=== PATIENT | male | born 1980 | race Caucasian/White ===

== ENCOUNTER 2019-10-09 | Emergency (ER) | payer OTHER | END 2019-10-09 02:25 | disposition left against medical advice (07) | DX: Z53.21 Procedure and treatment not carried out due to patient leaving prior to being seen by health care provider (principal) | CPT/HCPCS: 99499 ==

== ENCOUNTER 2019-11-27 07:02 | Emergency (ER) | payer OTHER, BC ==
[2019-11-27 07:15] VITALS: BP 121/65; PULSE 81; RESP 18; TEMP 97.6
--- NOTE | 2019-11-27 07:34 | ED ---
Wound/Laceration HPI - General Chief Complaint: Wound/Laceration Stated Complaint: Leg lac Time Seen by Provider: 11/27/19 07:18 Source: patient, RN notes reviewed, old records reviewed Mode of arrival: ambulatory Limitations: no limitations - History of Present Illness Initial Comments: Patient is a 39-year-old male who presents emergency department today for evaluation with chief complaint of irritation over his right posterior knee. She reports that he cut his knee on accident with a knife 3 weeks ago and reports she's been keeping this area covered. He states it is now having some irritation and itching likely where the bandage was placed. Patient states that he has no other areas of irritation or complaints. Patient denies any other sym ptoms. - Related Data Home Medications Medication Instructions Recorded Confirmed metFORMIN HCL [Glucophage] 1,000 mg PO DAILY 09/23/14 05/25/15 Lisinopril [Zestril] 5 mg PO DAILY 05/25/15 05/25/15 Previous Rx's Medication Instructions Recorded Hydrocortisone Oint 1 applic TOPICAL QID #60 gm 11/27/19 [Hydrocortisone 1% Oint] Allergies Allergy/AdvReac Type Severity Reaction Status Date / Time No Known Allergies Allergy Verified 09/23/14 13:22 Review of Systems ROS Statement: Those systems with pertinent positive or pertinent negative responses have been documented in the HPI. ROS Other: All systems not noted in ROS Statement are negative. Past Medical History Past Medical History: Diabetes Mellitus, Hypertension Additional Past Medical History / Comment(s): hypercholestremia. History of Any Multi-Drug Resistant Organisms: None Reported Additional Past Surgical History / Comment(s): cysts removal, eye surgery . Past Psychological History: No Psychological Hx Reported Smoking Status: Current every day smoker Past Alcohol Use History: Occasional Past Drug Use History: None Reported General Exam - General Exam Comments Initial Comments: 39-year-old male. Alert. No distress. Limitations: no limitations General appearance: alert, in no apparent distress Head exam: Present: atraumatic, normocephalic, normal inspection Eye exam: Present: normal appearance, PERRL, EOMI. Absent: scleral icterus, conjunctival injection, periorbital swelling ENT exam: Present: normal exam, mucous membranes moist Neck exam: Present: normal inspection. Absent: tenderness, meningismus, lymphadenopathy Respiratory exam: Present: normal lung sounds bilaterally. Absent: respiratory distress, wheezes, rales, rhonchi, stridor Cardiovascular Exam: Present: regular rate, normal rhythm, normal heart sounds. Absent: systolic murmur, diastolic murmur, rubs, gallop, clicks GI/Abdominal exam: Present: soft, normal bowel sounds. Absent: distended, tenderness, guarding, rebound, rigid Extremities exam: Present: normal inspection, full ROM, normal capillary refill. Absent: tenderness, pedal edema, joint swelling, calf tenderness Right Lower Leg exam: Present: normal inspection, full ROM, erythema (Patient has erythematous scaly lesion surrounding scar in relation to where the adhesive would be covering his from bandage from his history of a laceration 3 weeks ago. Patient has no drainage. No blistering. Full range of motion of the knee. The erythema and scaly changes measure approximately 2 cm x 3 cm.) Ankle exam: Present: normal inspection, full ROM Back exam: Present: normal inspection, full ROM Neurological exam: Present: alert, oriented X3, CN II-XII intact Psychiatric exam: Present: normal affect, normal mood Skin exam: Present: warm, dry, intact, normal color. Absent: rash Course Vital Signs 11/27/19 07:08 Temperature 97.6 F Pulse Rate 81 Respiratory 18 Rate Blood Pressure 121/65 O2 Sat by Pulse 98 Oximetry Medical Decision Making - Medical Decision Making Patient is a 39-year-old male presents branch from today when some itching over the right posterior knee. Patient likely has contact dermatitis from having a bandage over the area after sustaining a laceration. Discussed that this is a minor skin lesion, no oral systemic medications are required. Discussed at length of the steriod ointment for the next 2 weeks. Discussed using topical steroid cream. Discussed post follow-up with primary care doctor. All questions answered. Disposition Clinical Impression: Contact dermatitis Disposition: HOME SELF-CARE Condition: Good Instructions (If sedation given, give patient instructions): Contact Dermatitis (ED) Additional Instructions: Patient advised to put a thin film of the steroid cream over the area. Keep the area covered when wearing pants. Allowed to the open to air from time to time. Recommended follow-up with PCP. Prescriptions: Hydrocortisone Oint [Hydrocortisone 1% Oint] 1 applic TOPICAL QID #60 gm Is patient prescribed a controlled substance at d/c from ED?: No Referrals: Nonstaff,Physician [Primary Care Provider] - 1-2 days Time of Disposition: 07:31
== END 2019-11-27 07:37 | disposition home or self-care (01) ==
LOC: EC 07:02
DX: L25.9 Unspecified contact dermatitis, unspecified cause (principal); E11.9 Type 2 diabetes mellitus without complications; I10 Essential (primary) hypertension; F17.200 Nicotine dependence, unspecified, uncomplicated; Z79.84 Long term (current) use of oral hypoglycemic drugs; Z79.899 Other long term (current) drug therapy; Z87.828 Personal history of other (healed) physical injury and trauma
CPT/HCPCS: 99283

== ENCOUNTER 2020-01-12 04:22 | Emergency (ER) | payer OTHER, BC ==
[2020-01-12 04:32] VITALS: BP 152/86; PULSE 91; RESP 20; TEMP 97.7
[2020-01-12] MEDS ORDERED: ONDANSETRON 4 MG ODT STARTER PACK 2 TAB BTL PO STA (04:59)
--- NOTE | 2020-01-12 05:00 | ED ---
Abdominal Pain HPI - General Chief Complaint: Abdominal Pain Stated Complaint: Nausea, abd pain Time Seen by Provider: 01/12/20 04:25 Source: patient, RN notes reviewed, old records reviewed Mode of arrival: ambulatory Limitations: no limitations - History of Present Illness Initial Comments: This is a 39-year-old male presents today with upset stomach feels nauseous currently can keep anything down. Patient has going through a stress currently to changes in his job. Patient has mild nausea no absolute vomiting no chest pain. No recent travel history or sick contacts that he knows of. 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 State patient complains of stress from his travel like edema as he wants to look for another job this interview today. Patient states his stress is giving him anxiety and nausea MD Complaint: abdominal pain -: hour(s) Location: diffuse, periumbilical Radiation: epigastric, suprapubic Migration to: L flank Severity: moderate Severity scale (1-10): 4 Quality: cramping, aching Consistency: intermittent Improves With: nothing Worsens With: nothing Associated Symptoms: nausea, vomiting, diarrhea - Related Data Home Medications Medication Instructions Recorded Confirmed metFORMIN HCL [Glucophage] 1,000 mg PO DAILY 09/23/14 05/25/15 Lisinopril [Zestril] 5 mg PO DAILY 05/25/15 05/25/15 Previous Rx's Medication Instructions Recorded Hydrocortisone Oint 1 applic TOPICAL QID #60 gm 11/27/19 [Hydrocortisone 1% Oint] Allergies Allergy/AdvReac Type Severity Reaction Status Date / Time No Known Allergies Allergy Verified 01/12/20 04:32 Review of Systems ROS Statement: Those systems with pertinent positive or pertinent negative responses have been documented in the HPI. ROS Other: All systems not noted in ROS Statement are negative. Past Medical History Past Medical History: Diabetes Mellitus, Hypertension Additional Past Medical History / Comment(s): hypercholestremia. History of Any Multi-Drug Resistant Organisms: None Reported Additional Past Surgical History / Comment(s): cysts removal, eye surgery . Past Psychological History: ADD/ADHD Smoking Status: Current every day smoker Past Alcohol Use History: None Reported, Occasional Past Drug Use History: None Reported General Exam Limitations: no limitations General appearance: alert, in no apparent distress Head exam: Present: atraumatic, normocephalic, normal inspection Eye exam: Present: normal appearance, PERRL, EOMI. Absent: scleral icterus, conjunctival injection, periorbital swelling ENT exam: Present: normal exam, mucous membranes moist Neck exam: Present: normal inspection. Absent: tenderness, meningismus, lymphadenopathy Respiratory exam: Present: normal lung sounds bilaterally. Absent: respiratory distress, wheezes, rales, rhonchi, stridor Cardiovascular Exam: Present: regular rate, normal rhythm, normal heart sounds. Absent: systolic murmur, diastolic murmur, rubs, gallop, clicks GI/Abdominal exam: Present: soft, normal bowel sounds. Absent: distended, tenderness, guarding, rebound, rigid Extremities exam: Present: normal inspection, full ROM, normal capillary refill. Absent: tenderness, pedal edema, joint swelling, calf tenderness Back exam: Present: normal inspection Neurological exam: Present: alert, oriented X3, CN II-XII intact Psychiatric exam: Present: normal affect, normal mood Skin exam: Present: warm, dry, intact, normal color. Absent: rash Course Vital Signs 01/12/20 04:26 Temperature 97.7 F Pulse Rate 91 Respiratory 20 Rate Blood Pressure 152/86 O2 Sat by Pulse 98 Oximetry - Reevaluation(s) Reevaluation #1: Medical records reviewed Symptoms significantly resolved, no symptoms Patient informed of results okay for discharge Medical Decision Making - Medical Decision Making 39 male to the ER for evaluation patient presents today for evaluation of not feeling well. Patient requesting day off work distress anxiety. No significant current symptoms. Patient can be discharged home Disposition Clinical Impression: Abdominal pain, Gastroenteritis Disposition: HOME SELF-CARE Condition: Good Instructions (If sedation given, give patient instructions): Gastritis (ED), Abdominal Pain (ED) Is patient prescribed a controlled substance at d/c from ED?: No Referrals: Nonstaff,Physician [Primary Care Provider] - 1-2 days
== END 2020-01-12 05:07 | disposition home or self-care (01) ==
LOC: EC 04:22
DX: K52.9 Noninfective gastroenteritis and colitis, unspecified (principal); E11.9 Type 2 diabetes mellitus without complications; I10 Essential (primary) hypertension; F17.200 Nicotine dependence, unspecified, uncomplicated; Z79.84 Long term (current) use of oral hypoglycemic drugs; Z79.899 Other long term (current) drug therapy
CPT/HCPCS: 99283; S0119

== ENCOUNTER 2020-02-17 16:48 | Emergency (ER) | payer OTHER, BC ==
[2020-02-17 16:57] VITALS: BP 122/74; PULSE 98; RESP 16; TEMP 97.6
--- NOTE | 2020-02-17 17:43 | ED ---
Skin/Abscess/FB HPI - General Chief complaint: Skin/Abscess/Foreign Body Stated complaint: rt big toenail Time Seen by Provider: 02/17/20 17:08 Source: patient Mode of arrival: ambulatory Limitations: no limitations - History of Present Illness Initial comments: Patient is a 39-year-old male presenting to emergency Department with a chief complaint of toenail coming off. Patient states he injured his right toe approximately one week ago. Patient states that is partially coming off now and is concerned whether he should have a Lucio taken out. Patient denies any pain but states it is uncomfortable whenever he is wearing socks or shoes. Patient denies any erythema. Patient states she is a diabetic but denies any fevers, sweats or chills. Denies any erythema or discharge near the toenail. Patient states she has full sensation. States he has full range of motion in the big toe. States he does have history of fungal infections for several decades now. - Related Data Home Medications Medication Instructions Recorded Confirmed lisinopriL [Zestril] 5 mg PO DAILY 05/25/15 02/17/20 Atorvastatin Calcium [Lipitor] 40 mg PO DAILY 02/17/20 02/17/20 Dulaglutide [Trulicity] 1.5 mg SQ SA 02/17/20 02/17/20 Pioglitazone HCl 30 mg PO DAILY 02/17/20 02/17/20 metFORMIN HCL ER [Glucophage Xr] 1,000 mg PO DAILY 02/17/20 02/17/20 Allergies Allergy/AdvReac Type Severity Reaction Status Date / Time No Known Allergies Allergy Verified 02/17/20 17:22 Review of Systems ROS Statement: Those systems with pertinent positive or pertinent negative responses have been documented in the HPI. ROS Other: All systems not noted in ROS Statement are negative. Past Medical History Past Medical History: Diabetes Mellitus, Hypertension Additional Past Medical History / Comment(s): hypercholestremia. History of Any Multi-Drug Resistant Organisms: None Reported Additional Past Surgical History / Comment(s): cysts removal, eye surgery . Past Psychological History: ADD/ADHD Past Alcohol Use History: None Reported, Occasional Past Drug Use History: None Reported General Exam Limitations: no limitations General appearance: alert, in no apparent distress, obese Head exam: Present: atraumatic, normocephalic, normal inspection Eye exam: Present: normal appearance, PERRL, EOMI Pupils: Present: normal accommodation ENT exam: Present: normal exam, normal oropharynx, mucous membranes moist, TM's normal bilaterally, normal external ear exam Neck exam: Present: normal inspection, full ROM. Absent: tenderness Respiratory exam: Present: normal lung sounds bilaterally. Absent: respiratory distress, wheezes Cardiovascular Exam: Present: regular rate, normal rhythm, normal heart sounds Extremities exam: Present: full ROM, normal capillary refill, other (+2 dorsalis pedis and posterior tibials bilaterally.). Absent: normal inspection (Partial nail avulsion of the right big toe.), tenderness Back exam: Present: normal inspection, full ROM. Absent: tenderness Neurological exam: Present: alert, oriented X3 Psychiatric exam: Present: normal affect, normal mood Skin exam: Present: warm, dry, intact, normal color Course Vital Signs 02/17/20 16:55 Temperature 97.6 F Pulse Rate 98 Respiratory 16 Rate Blood Pressure 122/74 O2 Sat by Pulse 96 Oximetry Medical Decision Making - Medical Decision Making This is a 39-year-old male presenting to the emergency department with a chief complaint of toenail coming up. On exam patient has a partial toenail avulsion which has been ongoing for the past 7 days when he injured it. States he has full range of motion in the right hallux. denies any pain , erythema or discharge. His biggest concern was the discomfort with wearing socks and shoes. The toenail appears to partially off the nailbed but I will not remove it at this time. Dressing was applied to keep the toenail take to the nailbed. No signs of infection at this time. This does not appear to be an ingrown nail. Patient advised to follow with the primary care. Return prescribed with thoroughly discussed with patient was a agreeable. Advised to follow-up with podiatry. Case discussed with physician. Disposition Clinical Impression: Toenail deformity Disposition: HOME SELF-CARE Condition: Stable Instructions (If sedation given, give patient instructions): Nail Removal (ED) Additional Instructions: Follow-up with a technical artist. Return to emergency department if symptoms worsen. Is patient prescribed a controlled substance at d/c from ED?: No Referrals: Nonstaff,Physician [Primary Care Provider] - 1-2 days Mathieu Mixon DPM [STAFF PHYSICIAN] - 1-2 days Time of Disposition: 17:42
== END 2020-02-17 18:02 | disposition home or self-care (01) ==
LOC: EC 16:48
DX: L60.8 Other nail disorders (principal); S91.201A Unspecified open wound of right great toe with damage to nail, initial encounter; E11.9 Type 2 diabetes mellitus without complications; I10 Essential (primary) hypertension; E78.00 Pure hypercholesterolemia, unspecified; Z79.84 Long term (current) use of oral hypoglycemic drugs; Z79.899 Other long term (current) drug therapy; X58.XXXA Exposure to other specified factors, initial encounter
CPT/HCPCS: 99283

== ENCOUNTER 2021-08-09 05:34 | Emergency (ER) | payer BC, OTHER ==
[2021-08-09 05:44] VITALS: TEMP 97.7
[2021-08-09] MEDS ORDERED: SODIUM CHLORIDE 0.9% 1,000 ML IV STA (05:52)
[2021-08-09] MEDS ORDERED: ONDANSETRON 4 MG/2 ML VIAL IVP STA (05:52)
[2021-08-09] MEDS ORDERED: KETOROLAC 15 MG/ML 1 ML VIAL IVP STA (05:52)
[2021-08-09] MEDS ORDERED: ONDANSETRON ODT 4 MG TAB PO STA (06:06)
[2021-08-09 06:27] LABS: Basophils % (A) 0 %; Eosinophils # (A) 0.2 k/uL (0-0.7); Eosinophils % (A) 3 %; HCT 45.1 % (39.0-53.0); HGB 14.5 gm/dL (13.0-17.5); Lymphocytes # (A) 1.7 k/uL (1.0-4.8); Lymphocytes % (A) 29 %; MCH 28.2 pg (25.0-35.0); MCHC 32.2 g/dL (31.0-37.0); MCV 87.5 fL (80.0-100.0); Monocytes # (A) 0.3 k/uL (0-1.0); Monocytes % (A) 5 %; Neutrophils # (A) 3.5 k/uL (1.3-7.7); Neutrophils % (A) 61 %; Platelet Count 219 k/uL (150-450); RBC 5.16 m/uL (4.30-5.90); RDW 13.7 % (11.5-15.5); WBC 5.7 k/uL (3.8-10.6)
[2021-08-09 06:29] LABS: Appearance,Urine Clear (Clear); Bilirubin,Urine Negative (Negative); Blood,Urine Negative (Negative); Color,Urine Yellow; Glucose,Urine (UA) Trace (Negative); Ketones,Urine Negative (Negative); Leukocyte Esterase,Urine Negative (Negative); Nitrite,Urine Negative (Negative); PH, Urine 5.5 (5.0-8.0); Protein,Urine Trace (Negative); Specific Gravity,Urine 1.031 (1.001-1.035)
[2021-08-09 06:41] LABS: ALT 26 U/L (4-49); AST 19 U/L (17-59); African American GFR (CKD) >90 (>60 ml/min/1.73 sqM); Albumin 3.9 g/dL (3.5-5.0); Alkaline Phosphatase 123 U/L (38-126); Amylase 58 U/L (30-110); Anion Gap 5 mmol/L; Blood Urea Nitrogen 14 mg/dL (9-20); Calcium 9.6 mg/dL (8.4-10.2); Carbon Dioxide 26 mmol/L (22-30); Chloride 107 mmol/L (98-107); Glucose 166 mg/dL (74-99); Lipase 71 U/L (23-300); Non-African American GFR(CKD) >90 (>60 ml/min/1.73 sqM); Potassium 4.4 mmol/L (3.5-5.1); Sodium 138 mmol/L (137-145); Total Bilirubin 0.4 mg/dL (0.2-1.3); Total Protein 6.2 g/dL (6.3-8.2)
--- NOTE | 2021-08-09 06:45 | ED ---
Abdominal Pain HPI - General Chief Complaint: Abdominal Pain Stated Complaint: abd pain Time Seen by Provider: 08/09/21 05:52 Source: patient, RN notes reviewed Mode of arrival: ambulatory Limitations: no limitations - History of Present Illness Initial Comments: A she is a 41-year-old male that presents to the emergency department complaining of left-sided abdominal pain with one episode of vomiting earlier this morning. Patient notes that he will leave AMA if he needs to be admitted. He also confessed that he really just wants a work note due to increased stress and father being injured. Patient repeatedly and profuse he stated he would just like a work note. He was otherwise well-appearing in no apparent distress. He denied any chest pain shortness of breath headache diarrhea constipation fever fatigue chills. - Related Data Home Medications Medication Instructions Recorded Confirmed lisinopriL [Zestril] 5 mg PO DAILY 05/25/15 02/17/20 Atorvastatin Calcium [Lipitor] 40 mg PO DAILY 02/17/20 02/17/20 Dulaglutide [Trulicity] 1.5 mg SQ SA 02/17/20 02/17/20 Pioglitazone HCl 30 mg PO DAILY 02/17/20 02/17/20 metFORMIN HCL ER [Glucophage Xr] 1,000 mg PO DAILY 02/17/20 02/17/20 Allergies Allergy/AdvReac Type Severity Reaction Status Date / Time Penicillins AdvReac Nausea & Verified 08/09/21 05:44 Vomiting & Diarrhea Review of Systems ROS Statement: Those systems with pertinent positive or pertinent negative responses have been documented in the HPI. ROS Other: All systems not noted in ROS Statement are negative. Past Medical History Past Medical History: Diabetes Mellitus, Hypertension Additional Past Medical History / Comment(s): hypercholestremia. History of Any Multi-Drug Resistant Organisms: None Reported Additional Past Surgical History / Comment(s): cysts removal, eye surgery . Past Psychological History: ADD/ADHD Smoking Status: Current every day smoker Past Alcohol Use History: None Reported Past Drug Use History: None Reported General Exam Limitations: no limitations General appearance: alert, in no apparent distress, obese Head exam: Present: atraumatic, normocephalic, normal inspection Eye exam: Present: normal appearance, PERRL, EOMI. Absent: scleral icterus, conjunctival injection, periorbital swelling ENT exam: Present: normal exam, mucous membranes moist Neck exam: Present: normal inspection. Absent: tenderness, meningismus, lymphadenopathy Respiratory exam: Present: normal lung sounds bilaterally. Absent: respiratory distress, wheezes, rales, rhonchi, stridor Cardiovascular Exam: Present: regular rate, normal rhythm, normal heart sounds. Absent: systolic murmur, diastolic murmur, rubs, gallop, clicks GI/Abdominal exam: Present: soft, normal bowel sounds. Absent: distended, tenderness, guarding, rebound, rigid Extremities exam: Present: normal inspection, full ROM, normal capillary refill. Absent: tenderness, pedal edema, joint swelling, calf tenderness Neurological exam: Present: alert, oriented X3 Psychiatric exam: Present: normal affect, normal mood Skin exam: Present: warm, dry, intact, normal color. Absent: rash Course Vital Signs 08/09/21 05:40 Temperature 97.7 F Pulse Rate 72 Respiratory 22 Rate Blood Pressure 117/65 O2 Sat by Pulse 97 Oximetry Medical Decision Making - Medical Decision Making 41-year-old male complaining of abdominal pain with vomiting times one this morning. Labs, milligrams of Zofran ordered. Patient declined any IV fluids pain medication or scanning/imaging. Labs are unremarkable and within normal limits. Patient was informed resulted in his real discharge home. Work note for today given. Case discussed with Dr. Dupree. - Lab Data Result diagrams: 08/09/21 05:56 08/09/21 05:56 Lab Results 08/09/21 08/09/21 08/09/21 Range/Units 05:56 05:56 05:56 WBC 5.7 (3.8-10.6) k/uL RBC 5.16 (4.30-5.90) m/uL Hgb 14.5 (13.0-17.5) gm/dL Hct 45.1 (39.0-53.0) % MCV 87.5 (80.0-100.0) fL MCH 28.2 (25.0-35.0) pg MCHC 32.2 (31.0-37.0) g/dL RDW 13.7 (11.5-15.5) % Plt Count 219 (150-450) k/uL MPV 8.0 Neutrophils % 61 % Lymphocytes % 29 % Monocytes % 5 % Eosinophils % 3 % Basophils % 0 % Neutrophils # 3.5 (1.3-7.7) k/uL Lymphocytes # 1.7 (1.0-4.8) k/uL Monocytes # 0.3 (0-1.0) k/uL Eosinophils # 0.2 (0-0.7) k/uL Basophils # 0.0 (0-0.2) k/uL Sodium 138 (137-145) mmol/L Potassium 4.4 (3.5-5.1) mmol/L Chloride 107 (98-107) mmol/L Carbon Dioxide 26 (22-30) mmol/L Anion Gap 5 mmol/L BUN 14 (9-20) mg/dL Creatinine 0.69 (0.66-1.25) mg/dL Est GFR (CKD-EPI)AfAm >90 (>60 ml/min/1.73 sqM) Est GFR (CKD-EPI)NonAf >90 (>60 ml/min/1.73 sqM) Glucose 166 H (74-99) mg/dL Calcium 9.6 (8.4-10.2) mg/dL Total Bilirubin 0.4 (0.2-1.3) mg/dL AST 19 (17-59) U/L ALT 26 (4-49) U/L Alkaline Phosphatase 123 (38-126) U/L Total Protein 6.2 L (6.3-8.2) g/dL Albumin 3.9 (3.5-5.0) g/dL Amylase 58 (30-110) U/L Lipase 71 (23-300) U/L Urine Color Yellow Urine Appearance Clear (Clear) Urine pH 5.5 (5.0-8.0) Ur Specific [place] 1.031 (1.001-1.035) Urine Protein Trace H (Negative) Urine Glucose (UA) Trace H (Negative) Urine Ketones Negative (Negative) Urine Blood Negative (Negative) Urine Nitrite Negative (Negative) Urine Bilirubin Negative (Negative) Urine Urobilinogen 2.0 (<2.0) mg/dL Ur Leukocyte Esterase Negative (Negative) Disposition Clinical Impression: Abdominal pain Disposition: HOME SELF-CARE Condition: Stable Instructions (If sedation given, give patient instructions): Abdominal Pain (ED) Additional Instructions: Please return to the Emergency Department if symptoms worsen or any other concerns. Is patient prescribed a controlled substance at d/c from ED?: No Referrals: Boris Lopez DO [Primary Care Provider] - 1-2 days Time of Disposition: 06:45
[2021-08-09 06:58] VITALS: BP 159/72; PULSE 77; RESP 18
== END 2021-08-09 07:11 | disposition home or self-care (01) ==
LOC: EC 05:34
DX: R10.9 Unspecified abdominal pain (principal); R11.10 Vomiting, unspecified; F17.200 Nicotine dependence, unspecified, uncomplicated; E11.9 Type 2 diabetes mellitus without complications; I10 Essential (primary) hypertension; Z88.0 Allergy status to penicillin; Z79.899 Other long term (current) drug therapy; Z79.84 Long term (current) use of oral hypoglycemic drugs; Z20.822 Contact with and (suspected) exposure to COVID-19
CPT/HCPCS: 36415; 80053; 81003; 82150; 83605; 83690; 85025; 87635; 99284

== ENCOUNTER 2022-08-11 18:48 | Emergency (ER) | payer BC ==
--- NOTE | 2022-08-11 20:33 | ED ---
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 He states he also had a cough which has resolved now. Patient states that he never had that happen before. He is concerned for pneumonia. Denies any fevers, no nausea vomiting diarrhea, no abdominal pain, no chest pain or shortness of breath. Patient is a pack-a-day smoker. History of diabetes, hypertension and high cholesterol. MD Complaint: cough, rhinorrhea, other (sneezing) -: days(s) (1) Severity scale (1-10): 0 Consistency: now resolved Improves With: nothing Associated Symptoms: denies other symptoms Treatments Prior to Arrival: none - Related Data Home Medications Medication Instructions Recorded Confirmed lisinopriL [Zestril] 5 mg PO DAILY 05/25/15 02/17/20 Atorvastatin Calcium [Lipitor] 40 mg PO DAILY 02/17/20 02/17/20 Dulaglutide [Trulicity] 1.5 mg SQ SA 02/17/20 02/17/20 Pioglitazone HCl 30 mg PO DAILY 02/17/20 02/17/20 metFORMIN HCL ER [Glucophage Xr] 1,000 mg PO DAILY 02/17/20 02/17/20 Allergies Allergy/AdvReac Type Severity Reaction Status Date / Time Penicillins AdvReac Nausea & Verified 12/31/21 00:28 Vomiting & Diarrhea Review of Systems ROS Statement: Those systems with pertinent positive or pertinent negative responses have been documented in the HPI. ROS Other: All systems not noted in ROS Statement are negative. Past Medical History Past Medical History: Diabetes Mellitus, Hypertension Additional Past Medical History / Comment(s): hypercholestremia. History of Any Multi-Drug Resistant Organisms: None Reported Additional Past Surgical History / Comment(s): cysts removal, eye surgery . Past Psychological History: ADD/ADHD Smoking Status: Current every day smoker Past Alcohol Use History: None Reported Past Drug Use History: None Reported General Exam Limitations: no limitations General appearance: alert, in no apparent distress Head exam: Present: atraumatic Eye exam: Absent: scleral icterus, conjunctival injection, periorbital swelling ENT exam: Present: mucous membranes moist Neck exam: Absent: meningismus Respiratory exam: Present: normal lung sounds bilaterally. Absent: respiratory distress, wheezes, rales, rhonchi, stridor, chest wall tenderness, accessory muscle use Cardiovascular Exam: Present: regular rate GI/Abdominal exam: Present: soft. Absent: tenderness Extremities exam: Present: normal capillary refill. Absent: tenderness, pedal edema Back exam: Absent: tenderness, rash noted Neurological exam: Present: alert, oriented X3, normal gait Psychiatric exam: Present: normal affect, normal mood Skin exam: Present: warm, dry, normal color. Absent: cyanosis, diaphoretic, petechiae, pallor Course Vital Signs 08/11/22 08/11/22 08/11/22 19:53 20:04 21:46 Temperature 98.3 F 98.0 F Pulse Rate 64 82 Respiratory 14 20 17 Rate Blood Pressure 130/75 142/80 O2 Sat by Pulse 98 98 Oximetry Medical Decision Making - Medical Decision Making Oxygen saturation is 98% on room air. No evidence of tachycardia. No fever. He was offered influenza and coronavirus testing and declined. He denies any chest pain or difficulty in breathing. No sore throat. Chest x-ray interpreted by me shows no evidence of consolidation. Radiologist interpretation normal chest. This may be an ALLERGIC response to an irritant as his symptoms have resolved. I encouraged him to stop smoking. Explained that chronic obstructive pulmonary disease is a common complication for those that smoke. Directed to follow up with his primary care doctor as needed. Case discussed with Dr. Frazier Was pt. sent in by a medical professional or institution? @ -no Did you speak to anyone other than the patient for history? @ -no Did you review nursing and triage notes? @ -yes i agree Were old charts reviewed? @ -no Differential Diagnosis? @ -allergic response, viral illness, pneumonia EKG interpreted by me (3pts min.)? @ -[none] X-rays interpreted by me (1pt min.)? @ -Yes as above CT interpreted by me (1pt min.)? @ -[none] U/S interpreted by me (1pt. min.)? @ -[none] What testing was considered but not performed? (CT, X-rays, U/S, labs)? Why? @Viral testing however patient declined What meds were considered but not given? Why? @ -no Did you discuss the management of the patient with other professionals? @ -no Did you reconcile home meds? @ -no Was smoking cessation discussed for >3mins.? @ -yes Was critical care preformed (if so, how long)? @ -no Were there social determinants of health that impacted care today? How? (Homelessness, low income, unemployed, alcoholism, drug addiction, transportation, low edu. Level, literacy, decrease access to med. care, snf, rehab)? @ -no Was there de-escalation of care discussed even if they declined? (Discuss DNR or withdrawal of care, Hospice)? @ -no What co-morbidities impacted this encounter? (DM, HTN, Smoking, COPD, CAD, Cancer, CVA, Hep., AIDS, mental health diagnosis, sleep apnea, morbid obesity)? @ -smoking, DM, HTN, high cholesterol, obesity Was patient admitted / discharged? @ -discharged Undiagnosed new problem with uncertain prognosis? @ -[none] Drug Therapy requiring intensive monitoring for toxicity (Heparin, Nitro, Insulin, Cardizem)? @ -no Were any procedures done? @ -no Diagnosis/symptom? @ -Upper respiratory illness Acute, or Chronic, or Acute on Chronic? @ -Acute Uncomplicated (without systemic symptoms) or Complicated (systemic symptoms)? @ -Uncomplicated Side effects of treatment? @ -[none] Exacerbation, Progression, or Severe Exacerbation] @ -[no] Poses a threat to life or bodily function? @ -[no] Disposition Clinical Impression: Acute upper respiratory infection Disposition: HOME SELF-CARE Condition: Good Instructions (If sedation given, give patient instructions): Upper Respiratory Infection (ED) Additional Instructions: Increase your fluid intake. Follow-up with primary care doctor next week. Take vitamin C vitamin D and zinc. Please stop smoking as it will worsen and lengthen the duration of any illness that you have. Is patient prescribed a controlled substance at d/c from ED?: No Referrals: Boris Lopez DO [Primary Care Provider] - 1-2 days Time of Disposition: 21:21
--- NOTE | 2022-08-11 21:00 | XR ---
EXAMINATION TYPE: XR chest 2V DATE OF EXAM: 08/11/2022 COMPARISON: NONE HISTORY: Cough TECHNIQUE: 2 views FINDINGS: Heart is normal. Lungs are clear of consolidation. There are no hilar masses. Bony thorax i s intact. IMPRESSION: Normal chest.
[2022-08-11 21:48] VITALS: BP 142/80; PULSE 82; RESP 17; TEMP 98
== END 2022-08-11 21:47 | disposition home or self-care (01) ==
LOC: EC 18:48
DX: J06.9 Acute upper respiratory infection, unspecified (principal); E11.9 Type 2 diabetes mellitus without complications; I10 Essential (primary) hypertension; F17.200 Nicotine dependence, unspecified, uncomplicated; Z88.0 Allergy status to penicillin; Z79.899 Other long term (current) drug therapy; Z79.84 Long term (current) use of oral hypoglycemic drugs
CPT/HCPCS: 71046; 99283

== ENCOUNTER 2022-10-11 08:41 | Emergency (ER) | payer BC ==
[2022-10-11 08:47] VITALS: BP 123/78; PULSE 90; RESP 20; TEMP 98.2
--- NOTE | 2022-10-11 09:20 | ED ---
General Adult HPI - General Chief complaint: Skin/Abscess/Foreign Body Stated complaint: rash Time Seen by Provider: 10/11/22 08:52 Source: patient, RN notes reviewed, old records reviewed Mode of arrival: ambulatory Limitations: no limitations - History of Present Illness Initial comments: This is a 42-year-old male who presents emergency Department complaining of a rash on both hands. Patient thinks it's scabies. Patient states she's had no exposure to scabies that he knows of. Patient states the rash is itchy but not that bad. Patient denies any other complaints. Patient denies any chemical exposure. Patient states his been ongoing for about a month. - Related Data Home Medications Medication Instructions Recorded Confirmed lisinopriL [Zestril] 5 mg PO DAILY 05/25/15 02/17/20 Atorvastatin Calcium [Lipitor] 40 mg PO DAILY 02/17/20 02/17/20 Dulaglutide [Trulicity] 1.5 mg SQ SA 02/17/20 02/17/20 Pioglitazone HCl 30 mg PO DAILY 02/17/20 02/17/20 metFORMIN HCL ER [Glucophage Xr] 1,000 mg PO DAILY 02/17/20 02/17/20 Previous Rx's Medication Instructions Recorded Permethrin 5% Cream [Elimite] 1 gm TOPICAL ONCE 1 Days #30 each 10/11/22 Allergies Allergy/AdvReac Type Severity Reaction Status Date / Time Penicillins AdvReac Nausea & Verified 10/11/22 08:47 Vomiting & Diarrhea Review of Systems ROS Statement: Those systems with pertinent positive or pertinent negative responses have been documented in the HPI. ROS Other: All systems not noted in ROS Statement are negative. Past Medical History Past Medical History: Diabetes Mellitus, Hypertension Additional Past Medical History / Comment(s): hypercholestremia. History of Any Multi-Drug Resistant Organisms: None Reported Additional Past Surgical History / Comment(s): cysts removal, eye surgery . Past Psychological History: ADD/ADHD Smoking Status: Current every day smoker Past Alcohol Use History: None Reported Past Drug Use History: None Reported General Exam - General Exam Comments Initial Comments: GENERAL Patient is well-developed and well-nourished. Patient is in mild distress. EYES Patient's pupils are equal and round. Extraocular motion is intact SKIN Patient has some excoriated areas on the dorsal aspect of both hands and both wrists. Patient looks like he's been itching the area because all areas are excoriated. NEURO The patient is alert and oriented 3 PYSCH Patient has normal interpersonal interactions. MUSCULOSKELETAL All 4 extremities and full range of motion Limitations: no limitations Course Vital Signs 10/11/22 08:44 Temperature 98.2 F Pulse Rate 90 Respiratory 20 Rate Blood Pressure 123/78 O2 Sat by Pulse 96 Oximetry Medical Decision Making - Medical Decision Making Was pt. sent in by a medical professional or institution (, ALEXANDRU, INJECTION MOLDING PROCESS TECHNICIAN, urgent care, hospital, or long term...) When possible be specific @ -No Did you speak to anyone other than the patient for history (EMS, parent, family, police, friend...)? What history was obtained from this source @ -No Did you review nursing and triage notes (agree or disagree)? Why? @ -I reviewed and agree with nursing and triage notes Were old charts reviewed (outside hosp., previous admission, EMS record, old EK G, old radiological studies, urgent care reports/EKG's, long term records)? Report findings @ -No old charts were reviewed Differential Diagnosis (chest pain, altered mental status, abdominal pain women, abdominal pain men, vaginal bleeding, weakness, fever, dyspnea, syncope, headache, dizziness, GI bleed, back pain, seizure, CVA, palpatations, mental health, musculoskeletal)? @ -Folliculitis, scabies, viral exanthem, herpes, this is not all inclusive list EKG interpreted by me (3pts min.). @ -As above X-rays interpreted by me (1pt min.). @ -None done CT interpreted by me (1pt min.). @ -None done U/S interpreted by me (1pt. min.). @ -None done What testing was considered but not performed or refused? (CT, X-rays, U/S, labs)? Why? @ -None What meds were considered but not given or refused? Why? @ -None Did you discuss the management of the patient with other professionals (liberty roberson i.e. ALEXANDRU Fuller, INJECTION MOLDING PROCESS TECHNICIAN, lab, RT, psych nurse, social work program coordinator, dehorner, teacher, assistant chief nursing officer, rn case management)? Give summary @ -No Was smoking cessation discussed for >3mins.? @ -No Was critical care preformed (if so, how long)? @ -No Were there social determinants of health that impacted care today? How? (Homelessness, low income, unemployed, alcoholism, drug addiction, transportation, low edu. Level, literacy, decrease access to med. care, [facility], rehab)? @ -No Was there de-escalation of care discussed even if they declined (Discuss DNR or withdrawal of care, Hospice)? DNR status @ -No What co-morbidities impacted this encounter? (DM, HTN, Smoking, COPD, CAD, Cancer, CVA, ARF, Chemo, Hep., AIDS, mental health diagnosis, sleep apnea, morbid obesity)? @ -None Was patient admitted / discharged? Hospital course, mention meds given and route, prescriptions, significant lab abnormalities, going to OR and other pertinent info. @ -Patient's rash is very minor Anusol excoriated is difficult to say what the initial rash look like. Patient was insistent he thought it was scabies and wanted treatment for that. Undiagnosed new problem with uncertain prognosis? @ -No Drug Therapy requiring intensive monitoring for toxicity (Heparin, Nitro, Insulin, Cardizem)? @ -No Were any procedures done? @ -No Diagnosis/symptom? @ -Scabies Acute, or Chronic, or Acute on Chronic? @ -Acute Uncomplicated (without systemic symptoms) or Complicated (systemic symptoms)? @ -Uncomplicated Side effects of treatment? @ -No Exacerbation, Progression, or Severe Exacerbation? @ -No Poses a threat to life or bodily function? How? (Chest pain, [place], [place], pneumonia, PE, COPD, DKA, ARF, appy, cholecystitis, CVA, Diverticulitis, Homicidal, Suicidal, threat to staff... and all critical care pts) @ -No Disposition Clinical Impression: Scabies Disposition: HOME SELF-CARE Condition: Good Instructions (If sedation given, give patient instructions): Scabies (ED) Prescriptions: Permethrin 5% Cream [Elimite] 1 gm TOPICAL ONCE 1 Days #30 each Is patient prescribed a controlled substance at d/c from ED?: No Referrals: Boris Lopez DO [Primary Care Provider] - 1-2 days Time of Disposition: 09:20
== END 2022-10-11 09:38 | disposition home or self-care (01) ==
LOC: EC 08:41
DX: B86 Scabies (principal); I10 Essential (primary) hypertension; E11.9 Type 2 diabetes mellitus without complications; F17.200 Nicotine dependence, unspecified, uncomplicated; Z79.84 Long term (current) use of oral hypoglycemic drugs; Z79.899 Other long term (current) drug therapy; Z88.0 Allergy status to penicillin
CPT/HCPCS: 99282

== ENCOUNTER 2023-02-08 01:12 | Emergency (ER) | payer BC ==
[2023-02-08 01:27] VITALS: BP 127/77; PULSE 89; RESP 18; TEMP 98.7
--- NOTE | 2023-02-08 01:42 | ED ---
Skin/Abscess/FB HPI - General Chief complaint: Skin/Abscess/Foreign Body Stated complaint: Finger pain Time Seen by Provider: 02/08/23 01:20 Source: patient Mode of arrival: ambulatory Limitations: no limitations - History of Present Illness Initial comments: 42-year-old male presenting with chief complaint of pain to the right ring finger. States that he frequently bites his nails and the finger has been painful and swollen for a few days. He is also concerned for a small pustule on the left elbow. No fevers or chills. No nausea or vomiting. No joint swelling or erythema. - Related Data Home Medications Medication Instructions Recorded Confirmed lisinopriL [Zestril] 5 mg PO DAILY 05/25/15 02/17/20 Atorvastatin Calcium [Lipitor] 40 mg PO DAILY 02/17/20 02/17/20 Dulaglutide [Trulicity] 1.5 mg SQ SA 02/17/20 02/17/20 Pioglitazone HCl 30 mg PO DAILY 02/17/20 02/17/20 metFORMIN HCL ER [Glucophage Xr] 1,000 mg PO DAILY 02/17/20 02/17/20 Previous Rx's Medication Instructions Recorded Permethrin 5% Cream [Elimite] 1 gm TOPICAL ONCE 1 Days #30 each 10/11/22 Sulfamethox-Tmp 800-160Mg [Bactrim 1 tab PO Q12HR 7 Days #14 tab 02/08/23 DS 800-160 mg] Allergies Allergy/AdvReac Type Severity Reaction Status Date / Time Penicillins AdvReac Nausea & Verified 02/08/23 01:27 Vomiting & Diarrhea Review of Systems ROS Statement: Those systems with pertinent positive or pertinent negative responses have been documented in the HPI. ROS Other: All systems not noted in ROS Statement are negative. Past Medical History Past Medical History: Diabetes Mellitus, Hypertension Additional Past Medical History / Comment(s): hypercholestremia. History of Any Multi-Drug Resistant Organisms: None Reported Additional Past Surgical History / Comment(s): cysts removal, eye surgery . Past Psychological History: ADD/ADHD Smoking Status: Current every day smoker Past Alcohol Use History: None Reported Past Drug Use History: None Reported General Exam Limitations: no limitations General appearance: alert, in no apparent distress Head exam: Present: atraumatic, normocephalic, normal inspection Eye exam: Present: normal appearance Neck exam: Present: normal inspection, full ROM Extremities exam: Present: other (Paronychia right ring finger) Neurological exam: Present: alert, oriented X3, CN II-XII intact Psychiatric exam: Present: normal affect, normal mood Skin exam: Present: other (Pustule to the left elbow.) Course Vital Signs 02/08/23 01:23 Temperature 98.7 F Pulse Rate 89 Respiratory 18 Rate Blood Pressure 127/77 O2 Sat by Pulse 97 Oximetry Procedures - Incision & Drainage Consent Obtained: verbal consent Site: hand (Right ring finger) Scalpel Used: #11 I&D Drainage Obtained: Pus, Blood Culture Obtained?: No Complications: pain Patient Tolerated Procedure: well Medical Decision Making - Medical Decision Making Was pt. sent in by a medical professional or institution (, ALEXANDRU, LEAD PROJECT MANAGER, urgent care, hospital, or correction...) When possible be specific @ -No Did you speak to anyone other than the patient for history (EMS, parent, family, police, friend...)? What history was obtained from this source @ -No Did you review nursing and triage notes (agree or disagree)? Why? @ -I reviewed and agree with nursing and triage notes Were old charts reviewed (outside hosp., previous admission, EMS record, old EKG, old radiological studies, urgent care reports/EKG's, correction records)? Report findings @ -No old charts were reviewed Differential Diagnosis (chest pain, altered mental status, abdominal pain women, abdominal pain men, vaginal bleeding, weakness, fever, dyspnea, syncope, headache, dizziness, GI bleed, back pain, seizure, CVA, palpatations, mental health, musculoskeletal)? @ -Differential includes paronychia, cellulitis, fracture, this is not an all inclusive list EKG interpreted by me (3pts min.). @ -As above X-rays interpreted by me (1pt min.). @ -None done CT interpreted by me (1pt min.). @ -None done U/S interpreted by me (1pt. min.). @ -None done What testing was considered but not performed or refused? (CT, X-rays, U/S, labs)? Why? @ -None What meds were considered but not given or refused? Why? @ -None Did you discuss the management of the patient with other professionals (professionals i.e. , PA, LEAD PROJECT MANAGER, lab, RT, psych nurse, psychologist social, lead instructor/flight attendant, teacher, airfield services officer, dependency case manager)? Give summary @ -No Was smoking cessation discussed for >3mins.? @ -No Was critical care preformed (if so, how long)? @ -No Were there social determinants of health that impacted care today? How? (Homelessness, low income, unemployed, alcoholism, drug addiction, tra nsportation, low edu. Level, literacy, decrease access to med. care, correction, rehab)? @ -No Was there de-escalation of care discussed even if they declined (Discuss DNR or withdrawal of care, Hospice)? DNR status @ -No What co-morbidities impacted this encounter? (DM, HTN, Smoking, COPD, CAD, Cancer, CVA, ARF, Chemo, Hep., AIDS, mental health diagnosis, sleep apnea, morbid obesity)? @ -None Was patient admitted / discharged? Hospital course, mention meds given and route, prescriptions, significant lab abnormalities, going to OR and other pertinent info. @ -42-year-old male presenting with chief complaint of pain to the right index finger. On inspection there appears to be swelling and a pus pocket consistent with a paronychia. Patient is also complaining of a small tender bump to the left elbow. There appears to be an ingrown hair on the elbow. There is no joint erythema or swelling. The ingrown hair is removed. Paronychia is incised and a small amount of pus was expressed. Patient is started on Bactrim. Follow- up with PCP. Report back to ER with any new or worsening symptoms. Discussed return parameters and answered all questions. Patient conveyed verbal understanding and agreed to the plan. I discussed this case in detail with my attending Dr. Slater Undiagnosed new problem with uncertain prognosis? @ -No Drug Therapy requiring intensive monitoring for toxicity (Heparin, Nitro, Insulin, Cardizem)? @ -No Were any procedures done? @ -Incision and drainage of paronychia Diagnosis/symptom? @ -paronychia Acute, or Chronic, or Acute on Chronic? @ -Acute Uncomplicated (without systemic symptoms) or Complicated (systemic symptoms)? @ -Uncomplicated Side effects of treatment? @ -No Exacerbation, Progression, or Severe Exacerbation? @ -No Poses a threat to life or bodily function? How? (Chest pain, [place], [place], pneumonia, PE, COPD, DKA, ARF, appy, cholecystitis, CVA, Diverticulitis, Homicidal, Suicidal, threat to staff... and all critical care pts) @ -No Disposition Clinical Impression: Paronychia, Ingrown hair Disposition: HOME SELF-CARE Condition: Good Instructions (If sedation given, give patient instructions): Paronychia (ED) Additional Instructions: Follow-up with PCP. Report back to ER with any new or worsening symptoms. Take medication as prescribed. Wash daily with soap and water. Prescriptions: Sulfamethox-Tmp 800-160Mg [Bactrim DS 800-160 mg] 1 tab PO Q12HR 7 Days #14 tab Is patient prescribed a controlled substance at d/c from ED?: No Referrals: Boris Lopez DO [Primary Care Provider] - 1-2 days Time of Disposition: 02:02
[2023-02-08] MEDS ORDERED: SULFAMETHOX-TMP 800-160MG 1 EACH TAB PO STA (02:02)
== END 2023-02-08 02:21 | disposition home or self-care (01) ==
LOC: EC 01:12
DX: L03.011 Cellulitis of right finger (principal); L73.1 Pseudofolliculitis barbae; E11.9 Type 2 diabetes mellitus without complications; I10 Essential (primary) hypertension; F17.200 Nicotine dependence, unspecified, uncomplicated; Z79.84 Long term (current) use of oral hypoglycemic drugs; Z79.899 Other long term (current) drug therapy; Z88.0 Allergy status to penicillin
CPT/HCPCS: 26010; 99283

== ENCOUNTER 2023-02-08 07:12 | Emergency (ER) | payer BC ==
[2023-02-08 07:22] VITALS: BP 88/60; PULSE 124; TEMP 97.7
[2023-02-08 07:41] VITALS: RESP 15
--- NOTE | 2023-02-08 08:06 | ED ---
General Adult HPI - General Chief complaint: Upper Respiratory Infection Stated complaint: Body aches Time Seen by Provider: 02/08/23 07:20 Source: patient, RN notes reviewed, old records reviewed Mode of arrival: ambulatory Limitations: no limitations - History of Present Illness Initial comments: This is a 42-year-old male who presents emergency Department asking for a work no. Patient states he has body aches but he does not want any swabs for any viral syndrome. Patient doesn't want an x-ray patient is want any blood drawn patient refuses to take an oral temperature he states is just here in extension on the work note that he got last night because he doesn't feel like he can go to work tomorrow. I told the patient that he needed to follow up with his primary doctor he states she will make an attempt to do that. Patient denies any chest pain difficulty breathing. Patient denies any abdominal pain. Patient states he does have an occasional cough but he does again refused chest x-ray - Related Data Home Medications Medication Instructions Recorded Confirmed lisinopriL [Zestril] 5 mg PO DAILY 05/25/15 02/17/20 Atorvastatin Calcium [Lipitor] 40 mg PO DAILY 02/17/20 02/17/20 Dulaglutide [Trulicity] 1.5 mg SQ SA 02/17/20 02/17/20 Pioglitazone HCl 30 mg PO DAILY 02/17/20 02/17/20 metFORMIN HCL ER [Glucophage Xr] 1,000 mg PO DAILY 02/17/20 02/17/20 Previous Rx's Medication Instructions Recorded Permethrin 5% Cream [Elimite] 1 gm TOPICAL ONCE 1 Days #30 each 10/11/22 Sulfamethox-Tmp 800-160Mg [Bactrim 1 tab PO Q12HR 7 Days #14 tab 02/08/23 DS 800-160 mg] Allergies Allergy/AdvReac Type Severity Reaction Status Date / Time Penicillins AdvReac Nausea & Verified 02/08/23 07:21 Vomiting & Diarrhea Review of Systems ROS Statement: Those systems with pertinent positive or pertinent negative responses have been documented in the HPI. ROS Other: All systems not noted in ROS Statement are negative. Past Medical History Past Medical History: Diabetes Mellitus, Hypertension Additional Past Medical History / Comment(s): hypercholestremia. History of Any Multi-Drug Resistant Organisms: None Reported Additional Past Surgical History / Comment(s): cysts removal, eye surgery . Past Psychological History: ADD/ADHD Smoking Status: Current every day smoker Past Alcohol Use History: None Reported Past Drug Use History: None Reported General Exam - General Exam Comments Initial Comments: GENERAL: Patient is well-developed and well-nourished. Patient is nontoxic and well- hydrated and is in no acute distress. ENT: Neck is soft and supple. No significant lymphadenopathy is noted. Oropharynx is clear. Moist mucous membranes. Neck has full range of motion without eliciting any pain. EYES: The sclera were anicteric and conjunctiva were pink and moist. Extraocular movements were intact and pupils were equal round and reactive to light. E yelids were unremarkable. PULMONARY: Unlabored respirations. Good breath sounds bilaterally. No audible rales rhonchi or wheezing was noted. CARDIOVASCULAR: Patient is tachycardic at 105 bpm ABDOMEN: Soft and nontender with normal bowel sounds. SKIN: Skin is clear with no lesions or rashes and otherwise unremarkable. NEUROLOGIC: Patient is alert and oriented x3. Cranial nerves II through XII are grossly intact. Motor and sensory are also intact. Normal speech, volume and content. Symmetrical smile. MUSCULOSKELETAL: Normal extremities with adequate strength and full range of motion. LYMPHATICS: No significant lymphadenopathy is noted PSYCHIATRIC: Normal psychiatric evaluation. Limitations: no limitations Course Vital Signs 02/08/23 02/08/23 07:16 07:36 Temperature 97.7 F Pulse Rate 124 H Respiratory 18 15 Rate Blood Pressure 88/60 O2 Sat by Pulse 94 L Oximetry Medical Decision Making - Medical Decision Making Was pt. sent in by a medical professional or institution (, PA, CONSUMER RELATIONS COMPLAINT CLERK, urgent care, hospital, or assisted...) When possible be specific @ -No Did you speak to anyone other than the patient for history (EMS, parent, family, police, friend...)? What history was obtained from this source @ -No Did you review nursing and triage notes (agree or disagree)? Why? @ -I reviewed and agree with nursing and triage notes Were old charts reviewed (outside hosp., previous admission, EMS record, old EKG, old radiological studies, urgent care reports/EKG's, assisted records)? Report findings @ -No old charts were reviewed Differential Diagnosis (chest pain, altered mental status, abdominal pain women, abdominal pain men, vaginal bleeding, weakness, fever, dyspnea, syncope, headache, dizziness, GI bleed, back pain, seizure, CVA, palpatations, mental health, musculoskeletal)? @ -Differential Musculoskeletal Muscular strain, contusion, ligament sprain, fracture, arthritis, septic arthritis, bursitis, cellulitis, muscle spasm, nerve compression, DVT, arterial occlusion, herpes zoster, electrolyte abnormality, tumor.... This is not meant to be in all inclusive list EKG interpreted by me (3pts min.). @ -As above X-rays interpreted by me (1pt min.). @ -None done CT interpreted by me (1pt min.). @ -None done U/S interpreted by me (1pt. min.). @ -None done What testing was considered but not performed or refused? (CT, X-rays, U/S, labs)? Why? @ -None What meds were considered but not given or refused? Why? @ -None Did you discuss the management of the patient with other professionals (professionals i.e. , PA, CONSUMER RELATIONS COMPLAINT CLERK, lab, RT, psych nurse, social service manager, parakeet raiser, teacher, community cultural development officer, case liner)? Give summary @ -No Was smoking cessation discussed for >3mins.? @ -No Was critical care preformed (if so, how long)? @ -No Were there social determinants of health that impacted care today? How? (Homelessness, low income, unemployed, alcoholism, drug addiction, transportation, low edu. Level, literacy, decrease access to med. care, prison, rehab)? @ -No Was there de-escalation of care discussed even if they declined (Discuss DNR or withdrawal of care, Hospice)? DNR status @ -No What co-morbidities impacted this encounter? (DM, HTN, Smoking, COPD, CAD, Cancer, CVA, ARF, Chemo, Hep., AIDS, mental health diagnosis, sleep apnea, morbid obesity)? @ -None Was patient admitted / discharged? Hospital course, mention meds given and route, prescriptions, significant lab abnormalities, going to OR and other pertinent info. @ -Patient refused an oral temperature. Patient admitted to me that he only wanted a work note for Thursday and that's the reason he came back they did complain of body aches all over he refused any laboratory tests refuse any viral swabs refuse any x-ray. Undiagnosed new problem with uncertain prognosis? @ -No Drug Therapy requiring intensive monitoring for toxicity (Heparin, Nitro, Insulin, Cardizem)? @ -No Were any procedures done? @ -No Diagnosis/symptom? @ -Myalgias Acute, or Chronic, or Acute on Chronic? @ -Acute Uncomplicated (without systemic symptoms) or Complicated (systemic symptoms)? @ -default Side effects of treatment? @ -No Exacerbation, Progression, or Severe Exacerbation? @ -No Poses a threat to life or bodily function? How? (Chest pain, [place], [place], pneumonia, PE, COPD, DKA, ARF, appy, cholecystitis, CVA, Diverticulitis, Homicidal, Suicidal, threat to staff... and all critical care pts) @ -No Disposition Clinical Impression: Myalgia, Refusal of care by patient Narrative: Review Disposition: HOME SELF-CARE Condition: Good Instructions (If sedation given, give patient instructions): Musculoskeletal Pain (ED) Is patient prescribed a controlled substance at d/c from ED?: No Referrals: Boris Lopez DO [Primary Care Provider] - 1-2 days Time of Disposition: 08:05
== END 2023-02-08 08:18 | disposition home or self-care (01) ==
LOC: EC 07:12
DX: M79.10 Myalgia, unspecified site (principal); E11.9 Type 2 diabetes mellitus without complications; I10 Essential (primary) hypertension; E78.00 Pure hypercholesterolemia, unspecified; F17.200 Nicotine dependence, unspecified, uncomplicated; Z79.84 Long term (current) use of oral hypoglycemic drugs; Z79.85 Long-term (current) use of injectable non-insulin antidiabetic drugs; Z79.899 Other long term (current) drug therapy; Z88.0 Allergy status to penicillin
CPT/HCPCS: 99283

== ENCOUNTER 2023-08-15 21:44 | Emergency (ER) | payer BC, OTHER ==
[2023-08-15 22:00] VITALS: TEMP 97.8
[2023-08-15] MEDS ORDERED: LIDOCAINE 1% INJ 10MG/ML (20 ML MDV) SQ ONE (22:07)
--- NOTE | 2023-08-15 23:11 | ED ---
Extremity Problem HPI - General Chief complaint: Extremity Problem,Nontraumatic Stated complaint: Infection in ring finger on left hand Time Seen by Provider: 08/15/23 21:58 Source: patient Mode of arrival: ambulatory Limitations: no limitations - History of Present Illness Initial comments: 43-year-old male presenting with chief complaint of pain and swelling to the left ring finger. Patient has history of paronychia. He frequently bites his nails. He states symptoms have been ongoing for 2 weeks but he has been "too busy". He still has full range of motion and sensation to the finger. - Related Data Home Medications Medication Instructions Recorded Confirmed lisinopriL [Zestril] 5 mg PO DAILY 05/25/15 02/17/20 Atorvastatin Calcium [Lipitor] 40 mg PO DAILY 02/17/20 02/17/20 Dulaglutide [Trulicity] 1.5 mg SQ SA 02/17/20 02/17/20 Pioglitazone HCl 30 mg PO DAILY 02/17/20 02/17/20 metFORMIN HCL ER [Glucophage Xr] 1,000 mg PO DAILY 02/17/20 02/17/20 Previous Rx's Medication Instructions Recorded Permethrin 5% Cream [Elimite] 1 gm TOPICAL ONCE 1 Days #30 each 10/11/22 Sulfamethox-Tmp 800-160Mg [Bactrim 1 tab PO Q12HR 7 Days #14 tab 02/08/23 DS 800-160 mg] Sulfamethox-Tmp 800-160Mg [Bactrim 1 tab PO Q12HR 7 Days #14 tab 08/15/23 DS 800-160 mg] Allergies Allergy/AdvReac Type Severity Reaction Status Date / Time Penicillins AdvReac Nausea & Verified 02/08/23 07:21 Vomiting & Diarrhea Review of Systems ROS Statement: Those systems with pertinent positive or pertinent negative responses have been documented in the HPI. ROS Other: All systems not noted in ROS Statement are negative. Past Medical History Past Medical History: Diabetes Mellitus, Hypertension Additional Past Medical History / Comment(s): hypercholestremia. History of Any Multi-Drug Resistant Organisms: None Reported Additional Past Surgical History / Comment(s): cysts removal, eye surgery . Past Psychological History: ADD/ADHD Smoking Status: Current every day smoker Past Alcohol Use History: None Reported Past Drug Use History: None Reported General Exam Limitations: no limitations General appearance: alert, in no apparent distress Head exam: Present: atraumatic, normocephalic Eye exam: Present: normal appearance Neck exam: Present: normal inspection Respiratory exam: Absent: respiratory distress Cardiovascular Exam: Present: regular rate Extremities exam: Present: other (There is swelling and erythema surrounding the nail of the left ring finger, drainable abscess is noted) Neurological exam: Present: alert, oriented X3 Psychiatric exam: Present: normal affect, normal mood Expanded Type of lesion: Present: abscess (L ring finger) Course Vital Signs 08/15/23 08/15/23 21:47 23:17 Temperature 97.8 F Pulse Rate 79 89 Respiratory 18 20 Rate Blood Pressure 97/57 86/60 O2 Sat by Pulse 100 97 Oximetry Procedures - Incision & Drainage Consent Obtained: verbal consent Site: hand (L ring finger) Anesthetic Used: lidocaine 1%, without epi I&D Cleaning Method: Alcohol Wipe Scalpel Used: #11 I&D Drainage Obtained: Pus Patient Tolerated Procedure: well Medical Decision Making - Medical Decision Making Was pt. sent in by a medical professional or institution (ALEXANDRU Fuller, CHIEF FUNDRAISING OFFICER, urgent care, hospital, or penitentiary...) When possible be specific @ -No Did you speak to anyone other than the patient for history (EMS, parent, family, police, friend...)? What history was obtained from this source @ -No Did you review nursing and triage notes (agree or disagree)? Why? @ -I reviewed and agree with nursing and triage notes Were old charts reviewed (outside hosp., previous admission, EMS record, old EKG, old radiological studies, urgent care reports/EKG's, penitentiary records)? Report findings @ -No old charts were reviewed Differential Diagnosis (chest pain, altered mental status, abdominal pain women, abdominal pain men, vaginal bleeding, weakness, fever, dyspnea, syncope, headache, dizziness, GI bleed, back pain, seizure, CVA, palpatations, mental health, musculoskeletal)? @ -Differential includes cellulitis, paronychia, flexor tenosynovitis, this is not an all inclusive list EKG interpreted by me (3pts min.). @ -As above X-rays interpreted by me (1pt min.). @ -None done CT interpreted by me (1pt min.). @ -None done U/S interpreted by me (1pt. min.). @ -None done What testing was considered but not performed or refused? (CT, X-rays, U/S, labs)? Why? @ -None What meds were considered but not given or refused? Why? @ -None Did you discuss the management of the patient with other professionals (professionals i.e. , PA, CHIEF FUNDRAISING OFFICER, lab, RT, psych nurse, health social work professor, small business director, teacher, fourth officer, rifle case repairer)? Give summary @ -No Was smoking cessation discussed for >3mins.? @ -No Was critical care preformed (if so, how long)? @ -No Were there social determinants of health that impacted care today? How? (Homelessness, low income, unemployed, alcoholism, drug addiction, transportation, low edu. Level, literacy, decrease access to med. care, custodial, rehab)? @ -No Was there de-escalation of care discussed even if they declined (Discuss DNR or withdrawal of care, Hospice)? DNR status @ -No What co-morbidities impacted this encounter? (DM, HTN, Smoking, COPD, CAD, Cancer, CVA, ARF, Chemo, Hep., AIDS, mental health diagnosis, sleep apnea, morbid obesity)? @ -None Was patient admitted / discharged? Hospital course, mention meds given and route, prescriptions, significant lab abnormalities, going to OR and other pertinent info. @ -43-year-old male presenting with chief complaint of pain and swelling to the left ring finger. Paronychia seen on exam. Digital block is given and incision and drainage is performed. I'm able to express pus from the area. Patient is started on Bactrim educated on warm compresses and supportive management. Follow-up with PCP. Report back to ER with any new or worsening symptoms. Discussed return parameters and answered all questions. Patient conveyed verbal understanding and agreed to the plan. I discussed this case in detail with my attending Dr. Black Undiagnosed new problem with uncertain prognosis? @ -No Drug Therapy requiring intensive monitoring for toxicity (Heparin, Nitro, Insulin, Cardizem)? @ -No Were any procedures done? @ -Digital block and incision and drainage Diagnosis/symptom? @ -Paronychia Acute, or Chronic, or Acute on Chronic? @ -acute Uncomplicated (without systemic symptoms) or Complicated (systemic symptoms)? @ -Uncomplicated Side effects of treatment? @ -No Exacerbation, Progression, or Severe Exacerbation? @ -No Poses a threat to life or bodily function? How? (Chest pain, [place], [place], pneumonia, PE, COPD, DKA, ARF, appy, cholecystitis, CVA, Diverticulitis, Homicidal, Suicidal, threat to staff... and all critical care pts) @ -No Disposition Clinical Impression: Paronychia Disposition: HOME SELF-CARE Condition: Good Instructions (If sedation given, give patient instructions): Paronychia (ED) Additional Instructions: Follow-up with PCP. Report back to ER if any new or worsening symptoms. Take medication as prescribed. Prescriptions: Sulfamethox-Tmp 800-160Mg [Bactrim DS 800-160 mg] 1 tab PO Q12HR 7 Days #14 tab Is patient prescribed a controlled substance at d/c from ED?: No Referrals: Boris Lpoez DO [Primary Care Provider] - 1-2 days Time of Disposition: 23:10
[2023-08-15 23:33] VITALS: BP 86/60; PULSE 89; RESP 20
== END 2023-08-15 23:31 | disposition home or self-care (01) ==
LOC: EC 21:44
DX: L03.012 Cellulitis of left finger (principal); E11.9 Type 2 diabetes mellitus without complications; I10 Essential (primary) hypertension; F17.200 Nicotine dependence, unspecified, uncomplicated; Z86.59 Personal history of other mental and behavioral disorders; Z79.84 Long term (current) use of oral hypoglycemic drugs; Z79.899 Other long term (current) drug therapy; Z88.0 Allergy status to penicillin
CPT/HCPCS: 99283; 26010; J2001

== ENCOUNTER 2024-04-12 07:58 | Emergency (ER) | payer BC, OTHER ==
[2024-04-12 08:05] VITALS: RESP 20
[2024-04-12] MEDS: LIDOCAINE 1% INJ 10MG/ML (20 ML MDV) SQ ONE (08:27)
--- NOTE | 2024-04-12 08:54 | ED ---
General Adult HPI - General Chief complaint: Skin/Abscess/Foreign Body Stated complaint: Urogenital Time Seen by Provider: 04/12/24 08:06 Source: patient, RN notes reviewed, old records reviewed Mode of arrival: ambulatory Limitations: no limitations - History of Present Illness Initial comments: This is a 43-year-old male who presents to the emergency department complaining that he has a sore on the upper medial aspect of his right thigh. Patient states he just noticed it recently. 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 Patient denies any fever or chills. Patient denies any testicular pain. Patient denies any penile pain. Patient denies any other symptoms at this time - Related Data Home Medications Medication Instructions Recorded Confirmed lisinopriL [Zestril] 5 mg PO DAILY 05/25/15 02/17/20 Atorvastatin Calcium [Lipitor] 40 mg PO DAILY 02/17/20 02/17/20 Dulaglutide [Trulicity] 1.5 mg SQ SA 02/17/20 02/17/20 Pioglitazone HCl 30 mg PO DAILY 02/17/20 02/17/20 metFORMIN HCL ER [Glucophage Xr] 1,000 mg PO DAILY 02/17/20 02/17/20 Previous Rx's Medication Instructions Recorded Permethrin 5% Cream [Elimite] 1 gm TOPICAL ONCE 1 Days #30 each 10/11/22 Sulfamethox-Tmp 800-160Mg [Bactrim 1 tab PO Q12HR 7 Days #14 tab 02/08/23 DS 800-160 mg] Sulfamethox-Tmp 800-160Mg [Bactrim 1 tab PO Q12HR 7 Days #14 tab 08/15/23 DS 800-160 mg] Cephalexin [Keflex] 500 mg PO Q6HR #40 cap 04/12/24 Sulfamethox-Tmp 800-160Mg [Bactrim 1 each PO Q12HR #20 tab 04/12/24 DS 800-160 mg] Allergies Allergy/AdvReac Type Severity Reaction Status Date / Time Penicillins AdvReac Nausea & Verified 04/12/24 08:05 Vomiting & Diarrhea Review of Systems ROS Statement: Those systems with pertinent positive or pertinent negative responses have been documented in the HPI. ROS Other: All systems not noted in ROS Statement are negative. Past Medical History Past Medical History: Diabetes Mellitus, Hypertension Additional Past Medical History / Comment(s): hypercholestremia. History of Any Multi-Drug Resistant Organisms: None Reported Additional Past Surgical History / Comment(s): cysts removal, eye surgery . Past Psychological History: ADD/ADHD Smoking Status: Current every day smoker Past Alcohol Use History: None Reported Past Drug Use History: None Reported General Exam - General Exam Comments Initial Comments: GENERAL Patient is well-developed and well-nourished. Patient is in mild distress. EYES Patient's pupils are equal and round. Extraocular motion is intact SKIN Unremarkable NEURO The patient is alert and oriented A&Ox3 PYSCH Patient has normal interpersonal interactions. MUSCULOSKELETAL Patient has a small abscess on the upper medial aspect of the right thigh it measures about 2 cm x 2 cm Limitations: no limitations Course Vital Signs 04/12/24 08:02 Temperature 98.2 F Pulse Rate 94 Respiratory 20 Rate Blood Pressure 146/91 O2 Sat by Pulse 96 Oximetry Procedures - Incision & Drainage Consent Obtained: verbal consent Anesthetic Used: lidocaine 1% I&D Cleaning Method: Betadine Scalpel Used: #11 Needle Aspiration Performed?: Yes Irrigation Performed?: No I&D Drainage Obtained: Pus, Blood Insertion of drain: No Culture Obtained?: Yes Complications: pain, bleeding Patient Tolerated Procedure: well Medical Decision Making - Medical Decision Making Was pt. sent in by a medical professional or institution (, PA, HOMICIDE DETECTIVE, urgent care, hospital, or [facility]...) When possible be specific @ -No Did you speak to anyone other than the patient for history (EMS, parent, family, police, friend...)? What history was obtained from this source @ -No Did you review nursing and triage notes (agree or disagree)? Why? @ -I reviewed and agree with nursing and triage notes Were old charts reviewed (outside hosp., previous admission, EMS record, old EKG, old radiological studies, urgent care reports/EKG's, [facility] records)? Report findings @ -No old charts were reviewed Differential Diagnosis? @ -Cellulitis, abscess, rash, this is not an all-inclusive list EKG interpreted by me (3pts min.). @ -As above X-rays interpreted by me (1pt min.). @ -None done CT interpreted by me (1pt min.). @ -None done U/S interpreted by me (1pt. min.). @ -None done What testing was considered but not performed or refused? (CT, X-rays, U/S, labs)? Why? @ -None What meds were considered but not given or refused? Why? @ -None Did you discuss the management of the patient with other professionals (professionals i.e. , PA, HOMICIDE DETECTIVE, lab, RT, psych nurse, licensed social worker, insecticide mixer, teacher, motor equipment commanding officer, patient case coordinator)? Give summary @ -No Was smoking cessation discussed for >3mins.? @ -No Was critical care preformed (if so, how long)? @ -No Were there social determinants of health that impacted care today? How? (Homelessness, low income, unemployed, alcoholism, drug addiction, transport ation, low edu. Level, literacy, decrease access to med. care, [facility], rehab)? @ -No Was there de-escalation of care discussed even if they declined (Discuss DNR or withdrawal of care, Hospice)? DNR status @ -No What co-morbidities impacted this encounter? (DM, HTN, Smoking, COPD, CAD, Cancer, CVA, ARF, Chemo, Hep., AIDS, mental health diagnosis, sleep apnea, morbid obesity)? @ -None Was patient admitted / discharged? Hospital course, mention meds given and route, prescriptions, significant lab abnormalities, going to OR and other pertinent info. @ -I did an I&D and the patient's abscess I got out quite a bit of pus and patient will be placed on oral antibiotics patient was instructed to follow-up in 3 to 4 days Undiagnosed new problem with uncertain prognosis? @ -No Drug Therapy requiring intensive monitoring for toxicity (Heparin, Nitro, Insulin, Cardizem)? @ -No Were any procedures done? @ -No Diagnosis/symptom? @ -Abscess groin Acute, or Chronic, or Acute on Chronic? @ -Acute Uncomplicated (without systemic symptoms) or Complicated (systemic symptoms)? @ -Complicated Side effects of treatment? @ -No Exacerbation, Progression, or Severe Exacerbation? @ -No Poses a threat to life or bodily function? How? (Chest pain, [place], [place], pneumonia, PE, COPD, DKA, ARF, appy, cholecystitis, CVA, Diverticulitis, Homicidal, Suicidal, threat to staff... and all critical care pts) @ -No Disposition Clinical Impression: Abscess, groin Disposition: HOME SELF-CARE Instructions (If sedation given, give patient instructions): Abscess Incision and Drainage (ED) Prescriptions: Sulfamethox-Tmp 800-160Mg [Bactrim DS 800-160 mg] 1 each PO Q12HR #20 tab Cephalexin [Keflex] 500 mg PO Q6HR #40 cap Is patient prescribed a controlled substance at d/c from ED?: No Referrals: Josué Calero MD [Primary Care Provider] - 1-2 days Time of Disposition: 08:53
[2024-04-12 09:31] VITALS: BP 138/81; PULSE 92; TEMP 98
== END 2024-04-12 09:31 | disposition home or self-care (01) ==
LOC: EC 07:58
CPT/HCPCS: 10060; 87070; 87077; 87186; 87205; 99283

== ENCOUNTER 2024-04-20 19:45 | Emergency (ER) | payer BC ==
[2024-04-20] MEDS: FAMOTIDINE 20 MG TAB PO STA (21:00)
[2024-04-20] MEDS: diphenhydrAMINE 50 MG/ML 1 ML VIAL IM STA (21:00)
[2024-04-20] MEDS: methylPREDNISolone SOD SUCCI 125 MG/2 ML VIAL IM ONE (21:05)
--- NOTE | 2024-04-20 22:33 | ED ---
Allergic Reaction HPI - General Chief complaint: Allergic Reaction Stated complaint: lip swelling Time Seen by Provider: 04/20/24 20:03 Source: patient, RN notes reviewed Mode of arrival: ambulatory Limitations: no limitations - History of Present Illness Initial Comments: This is a 43-year-old male who presents to the emergency department for concerns of an allergic reaction. Patient was evaluated here on 04/12 for an abscess in his groin. This was drained and he was started on Bactrim and Keflex. He has been on Bactrim before but not Keflex. States that about 2 hours prior to arrival he developed swelling to his lower lip. He then started to notice hives across his chest and arms. Denies any chest pain or shortness of breath. Reports a history of angioedema from blood pressure medication, but cannot recall which one. MD Complaint: allergic reaction - Related Data Home Medications Medication Instructions Recorded Confirmed lisinopriL [Zestril] 5 mg PO DAILY 05/25/15 02/17/20 Atorvastatin Calcium [Lipitor] 40 mg PO DAILY 02/17/20 02/17/20 Dulaglutide [Trulicity] 1.5 mg SQ SA 02/17/20 02/17/20 Pioglitazone HCl 30 mg PO DAILY 02/17/20 02/17/20 metFORMIN HCL ER [Glucophage Xr] 1,000 mg PO DAILY 02/17/20 02/17/20 Previous Rx's Medication Instructions Recorded Permethrin 5% Cream [Elimite] 1 gm TOPICAL ONCE 1 Days #30 each 10/11/22 Sulfamethox-Tmp 800-160Mg [Bactrim 1 tab PO Q12HR 7 Days #14 tab 02/08/23 DS 800-160 mg] Sulfamethox-Tmp 800-160Mg [Bactrim 1 tab PO Q12HR 7 Days #14 tab 08/15/23 DS 800-160 mg] Cephalexin [Keflex] 500 mg PO Q6HR #40 cap 04/12/24 Sulfamethox-Tmp 800-160Mg [Bactrim 1 each PO Q12HR #20 tab 04/12/24 DS 800-160 mg] Famotidine 40 mg PO DAILY 5 Days #5 tablet 04/20/24 diphenhydrAMINE HCL [Sominex Max 50 mg PO Q6H #20 tab 04/20/24 Strength] predniSONE 50 mg PO DAILY 5 Days #5 tab 04/20/24 Allergies Allergy/AdvReac Type Severity Reaction Status Date / Time Penicillins AdvReac Nausea & Verified 04/12/24 08:05 Vomiting & Diarrhea Review of Systems ROS Statement: Those systems with pertinent positive or pertinent negative responses have been documented in the HPI. ROS Other: All systems not noted in ROS Statement are negative. Past Medical History Past Medical History: Diabetes Mellitus, Hypertension Additional Past Medical History / Comment(s): hypercholestremia. History of Any Multi-Drug Resistant Organisms: None Reported Additional Past Surgical History / Comment(s): cysts removal, eye surgery . Past Psychological History: ADD/ADHD Smoking Status: Current every day smoker Past Alcohol Use History: None Reported Past Drug Use History: None Reported General Exam Limitations: no limitations General appearance: alert, in no apparent distress Head exam: Present: atraumatic, normocephalic, normal inspection ENT exam: Present: other (Swelling to the bottom lip) Respiratory exam: Present: normal lung sounds bilaterally. Absent: respiratory distress, wheezes, rales, rhonchi, stridor Cardiovascular Exam: Present: regular rate, normal rhythm, normal heart sounds. Absent: systolic murmur, diastolic murmur, rubs, gallop, clicks Neurological exam: Present: alert, oriented X3, CN II-XII intact Psychiatric exam: Present: normal affect, normal mood Skin exam: Present: other (Urticaria to the bilateral upper extremities and chest) Course Vital Signs 04/20/24 04/20/24 04/20/24 19:58 20:12 22:34 Temperature 97.8 F 98.2 F Pulse Rate 80 86 Respiratory 18 17 20 Rate Blood Pressure 106/63 122/81 O2 Sat by Pulse 96 97 Oximetry Medical Decision Making - Medical Decision Making This is a 43 year old male who presents to the emergency department for lip swelling and hives. Was pt. sent in by a medical professional or institution? @ -No Did you speak to anyone other than the patient for history? @ -No Did you review nursing and triage notes? @ -Yes, and I agree, it is accurate with regards to the patient's symptoms. Were old charts reviewed? @ -No Differential Diagnosis? @ -Differential Lip Swelling: Allergic reaction, injury/trauma, cold sore, cellulitis, this is not meant to be an all-inclusive list. EKG interpreted by me (3pts min.)? @ -Not obtained X-rays interpreted by me (1pt min.)? @ -Not obtained CT interpreted by me (1pt min.)? @ -Not obtained U/S interpreted by me (1pt. min.)? @ -Not obtained What testing was considered but not performed? (CT, X-rays, U/S, labs)? Why? @ -None What meds were considered but not given? Why? @ -None Did you discuss the management of the patient with other professionals? @ -No Did you reconcile home meds? @ -No Was smoking cessation discussed for >3mins.? @ -No Was critical care preformed (if so, how long)? @ -No Were there social determinants of health that impacted care today? How? (Homelessness, low income, unemployed, alcoholism, drug addiction, transportation, low edu. Level, literacy, decrease access to med. care, long-term, rehab)? @ -No Was there de-escalation of care discussed even if they declined? (Discuss DNR or withdrawal of care, Hospice)? @ -No What co-morbidities impacted this encounter? (DM, HTN, Smoking, COPD, CAD, Cancer, CVA, Hep., AIDS, mental health diagnosis, sleep apnea, morbid obesity)? @ -None Was patient admitted / discharged? @ -Discharged. Patient treated with Solu-Medrol, Benadryl, and famotidine with significant improvement in symptoms. He requested that a male provider look at the abscess in his groin. ED attending Dr. Black evaluated this and advised that it was healing very well and there is essentially nothing left. Advised he discontinue both antibiotics given the improvement in the abscess and unclear offender. However, given that he has tolerated Bactrim in the past and Keflex is new to him, Keflex is likely the culprit. However, it is also possible that it is unrelated to either of them and it could be from something else he encountered. Prescription for prednisone, famotidine, and Benadryl provided to be taken over the next 5 days. Advised follow-up with his PCP. Patient discharged home in stable condition. Case discussed with ED attending Dr. Black. Return precautions reviewed in depth, the patient is instructed to return to the emergency department with any new, worsening, or concerning symptoms. Patient verbalized understanding. Undiagnosed new problem with uncertain prognosis? @ -None Drug Therapy requiring intensive monitoring for toxicity (Heparin, Nitro, Insulin, Cardizem)? @ -None Were any procedures done? @ -None Diagnosis/symptom? @ -Allergic reaction Acute, or Chronic, or Acute on Chronic? @ -Acute Uncomplicated (without systemic symptoms) or Complicated (systemic symptoms)? @ -Uncomplicated Side effects of treatment? @ -None Exacerbation, Progression, or Severe Exacerbation] @ -Not applicable Poses a threat to life or bodily function? @ -No Disposition Clinical Impression: Allergic reaction to drug Disposition: HOME SELF-CARE Instructions (If sedation given, give patient instructions): Urticaria (ED), Angioedema (ED) Additional Instructions: Return to the emergency department with any new, worsening, or concerning symptoms. Stop taking both antibiotics. Take the prednisone and famotidine daily for the next 5 days. Take the Benadryl every 6 hours. You can also use a different [id number] antihistamine that is less sedating if you would like. Follow up with your primary care provider in 1-2 days. Prescriptions: Famotidine 40 mg PO DAILY 5 Days #5 tablet predniSONE 50 mg PO DAILY 5 Days #5 tab diphenhydrAMINE HCL [Sominex Max Strength] 50 mg PO Q6H #20 tab Is patient prescribed a controlled substance at d/c from ED?: No Referrals: Josué Calero MD [Primary Care Provider] - 1-2 days Time of Disposition: 22:32
[2024-04-20 22:37] VITALS: BP 122/81; PULSE 86; RESP 20; TEMP 98.2
== END 2024-04-20 22:35 | disposition home or self-care (01) ==
LOC: EC 19:45
CPT/HCPCS: 96372; 99283

== ENCOUNTER 2024-11-20 07:31 | Emergency (ER) | payer BC ==
[2024-11-20 07:42] LABS: Glucose,Whole Blood 214 mg/dL (70-110)
[2024-11-20] MEDS: LACTATED RINGERS 1,000 ML IV SCH (08:43)
[2024-11-20 08:48] VITALS: RESP 18; TEMP 97.8
[2024-11-20 08:57] LABS: Basophils # (A) 0.03 10*3/uL (0.00-0.10); Basophils % (A) 0.4 %; Eosinophils # (A) 0.23 10*3/uL (0.04-0.35); Eosinophils % (A) 3.2 %; HCT 44.6 % (39.6-50.0); HGB 15.1 g/dL (13.0-17.0); Lymphocytes # (A) 1.74 10*3/uL (0.90-5.00); Lymphocytes % (A) 24.1 %; MCH 28.2 pg (27.0-32.0); MCHC 33.9 g/dL (32.0-37.0); MCV 83.4 fL (80.0-97.0); Mean Platelet Volume 10.4 fL (9.5-12.2); Monocytes # (A) 0.42 10*3/uL (0.20-1.00); Monocytes % (A) 5.8 %; Neutrophils # (A) 4.79 10*3/uL (1.80-7.70); Neutrophils % (A) 66.2 %; Platelet Count 204 10*3/uL (140-440); RBC 5.35 10*6/uL (4.40-5.60); RDW 13.2 % (11.5-14.5); WBC 7.23 10*3/uL (4.50-10.00)
[2024-11-20 09:11] LABS: Appearance,Urine Clear (Clear); Bilirubin,Urine Negative (Negative); Blood,Urine Negative (Negative); Color,Urine Yellow; Glucose,Urine (UA) 3+ (Negative); Ketones,Urine Negative (Negative); Leukocyte Esterase,Urine Negative (Negative); Nitrite,Urine Negative (Negative); PH, Urine 5.5 (5.0-8.0); Protein,Urine Negative (Negative); Specific Gravity,Urine 1.021 (1.001-1.035); Urobilinogen,Urine <2.0 mg/dL (<2.0)
[2024-11-20 09:22] LABS: ALT 26 U/L (4-49); AST 18 U/L (17-59); African American GFR (CKD) >90 (>60 ml/min/1.73 sqM); Albumin 4.1 g/dL (3.5-5.0); Alkaline Phosphatase 136 U/L (38-126); Anion Gap 4 mmol/L; Blood Urea Nitrogen 16 mg/dL (9-20); Calcium 8.6 mg/dL (8.4-10.2); Carbon Dioxide 23 mmol/L (22-30); Chloride 106 mmol/L (98-107); Glucose 223 mg/dL (74-99); Non-African American GFR(CKD) >90 (>60 ml/min/1.73 sqM); Potassium 4.7 mmol/L (3.5-5.1); Sodium 133 mmol/L (137-145); Total Bilirubin 0.4 mg/dL (0.2-1.3); Total Protein 6.3 g/dL (6.3-8.2)
[2024-11-20 09:45] LABS: Glucose,Whole Blood 193 mg/dL (70-110)
[2024-11-20 09:46] VITALS: BP 128/76; PULSE 78
--- NOTE | 2024-11-20 10:17 | ED ---
General Adult HPI - General Chief complaint: Recheck/Abnormal Lab/Rx Stated complaint: Hyperglycemia Time Seen by Provider: 11/20/24 07:40 Source: patient Mode of arrival: ambulatory Limitations: no limitations - History of Present Illness Initial comments: 44-year-old male presents to the emergency department with high blood sugar. Patient is a diabetic. He is on oral medications for his diabetes. Reports that his sugar was over 200 at home and this is extremely high for him. He decided to come into the emergency department for evaluation. Patient was previously on Mounjaro but does not want to take it anymore. He has not discussed with his primary care what he is going to take and substitute of this. He does state that he watches his diet and has lost 30 pounds recently. Patient is extremely resistive to taking any insulin. He denies a history of DKA. No chest pain or shortness of breath. No abdominal pain. No other alleviating, precipitating or modifying factors - Related Data Home Medications Medication Instructions Recorded Confirmed lisinopriL [Zestril] 5 mg PO DAILY 05/25/15 02/17/20 Atorvastatin Calcium [Lipitor] 40 mg PO DAILY 02/17/20 02/17/20 Dulaglutide [Trulicity] 1.5 mg SQ SA 02/17/20 02/17/20 Pioglitazone HCl 30 mg PO DAILY 02/17/20 02/17/20 metFORMIN HCL ER [Glucophage Xr] 1,000 mg PO DAILY 02/17/20 02/17/20 Previous Rx's Medication Instructions Recorded Permethrin 5% Cream [Elimite] 1 gm TOPICAL ONCE 1 Days #30 each 10/11/22 Sulfamethox-Tmp 800-160Mg [Bactrim 1 tab PO Q12HR 7 Days #14 tab 02/08/23 DS 800-160 mg] Sulfamethox-Tmp 800-160Mg [Bactrim 1 tab PO Q12HR 7 Days #14 tab 08/15/23 DS 800-160 mg] Cephalexin [Keflex] 500 mg PO Q6HR #40 cap 04/12/24 Sulfamethox-Tmp 800-160Mg [Bactrim 1 each PO Q12HR #20 tab 04/12/24 DS 800-160 mg] Famotidine 40 mg PO DAILY 5 Days #5 tablet 04/20/24 diphenhydrAMINE HCL [Sominex Max 50 mg PO Q6H #20 tab 04/20/24 Strength] predniSONE 50 mg PO DAILY 5 Days #5 tab 04/20/24 Allergies Allergy/AdvReac Type Severity Reaction Status Date / Time Penicillins AdvReac Nausea & Verified 04/12/24 08:05 Vomiting & Diarrhea Review of Systems ROS Statement: Those systems with pertinent positive or pertinent negative responses have been documented in the HPI. ROS Other: All systems not noted in ROS Statement are negative. Past Medical History Past Medical History: Diabetes Mellitus, Hyperlipidemia, Hypertension Additional Past Medical History / Comment(s): foot fungus History of Any Multi-Drug Resistant Organisms: None Reported Additional Past Surgical History / Comment(s): cysts removal, eye surgery . Past Psychological History: ADD/ADHD Smoking Status: Current every day smoker Past Alcohol Use History: None Reported Past Drug Use History: None Reported General Exam Limitations: no limitations General appearance: alert, in no apparent distress Head exam: Present: atraumatic, normocephalic, normal inspection Eye exam: Present: normal appearance, PERRL, EOMI. Absent: scleral icterus, conjunctival injection, periorbital swelling ENT exam: Present: normal exam, mucous membranes moist Neck exam: Present: normal inspection. Absent: tenderness, meningismus, lymphadenopathy Respiratory exam: Present: normal lung sounds bilaterally. Absent: respiratory distress, wheezes, rales, rhonchi, stridor Cardiovascular Exam: Present: regular rate, normal rhythm, normal heart sounds. Absent: systolic murmur, diastolic murmur, rubs, gallop, clicks GI/Abdominal exam: Present: soft, normal bowel sounds. Absent: distended, tenderness, guarding, rebound, rigid Extremities exam: Present: normal inspection, full ROM, normal capillary refill. Absent: tenderness, pedal edema, joint swelling, calf tenderness Back exam: Present: normal inspection Neurological exam: Present: alert, oriented X3, CN II-XII intact Psychiatric exam: Present: normal affect, normal mood Skin exam: Present: warm, dry, intact, normal color. Absent: rash Course Vital Signs 11/20/24 11/20/24 11/20/24 07:37 08:46 09:45 Temperature 97.6 F 97.8 F Pulse Rate 82 74 78 Respiratory 20 18 18 Rate Blood Pressure 163/92 119/70 128/76 O2 Sat by Pulse 98 98 98 Oximetry Medical Decision Making - Medical Decision Making Was pt. sent in by a medical professional or institution (ALEXANDRU Fuller, GUYLINE OPERATOR, urgent care, hospital, or correction...) When possible be specific @ -No Did you speak to anyone other than the patient for history (EMS, parent, family, police, friend...)? What history was obtained from this source @ -No Did you review nursing and triage notes (agree or disagree)? Why? @ -I reviewed and agree with nursing and triage notes Were old charts reviewed (outside hosp., previous admission, EMS record, old EKG, old radiological studies, urgent care reports/EKG's, correction records)? Report findings @ -No old charts were reviewed Differential Diagnosis (chest pain, altered mental status, abdominal pain women, abdominal pain men, vaginal bleeding, weakness, fever, dyspnea, syncope, headache, dizziness, GI bleed, back pain, seizure, CVA, palpatations, mental health, musculoskeletal)? @ -Hyperglycemia, medical noncompliance, DKA, sepsis EKG interpreted by me (3pts min.). @ -Not done X-rays interpreted by me (1pt min.). @ -None done CT interpreted by me (1pt min.). @ -None done U/S interpreted by me (1pt. min.). @ -None done What testing was considered but not performed or refused? (CT, X-rays, U/S, labs)? Why? @ -None What meds were considered but not given or refused? Why? @ -Insulin was considered to get the patient's sugars down however he refuses Did you discuss the management of the patient with other professionals (professionals i.e. ALEXANDRU Fuller, GUYLINE OPERATOR, lab, RT, psych nurse, social work case manager, unitizer, teacher, ethics officer, block and case maker)? Give summary @ -No Was smoking cessation discussed for >3mins.? @ -No Was critical care preformed (if so, how long)? @ -No Were there social determinants of health that impacted care today? How? (Homelessness, low income, unemployed, alcoholism, drug addiction, transportation, low edu. Level, literacy, decrease access to med. care, long term, rehab)? @ -No Was there de-escalation of care discussed even if they declined (Discuss DNR or withdrawal of care, Hospice)? DNR status @ -No What co-morbidities impacted this encounter? (DM, HTN, Smoking, COPD, CAD, Cancer, CVA, ARF, Chemo, Hep., AIDS, mental health diagnosis, sleep apnea, morbid obesity)? @ -Diabetes Was patient admitted / discharged? Hospital course, mention meds given and route, prescriptions, significant lab abnormalities, going to OR and other pertinent info. @ -Upon arrival patient seen and evaluated in bed 28. Thorough history and physical exam was performed. IV access was established and patient was administered fluids. Laboratory studies are conducted. Patient is not in DKA. Patient is strictly hyperglycemic. I did recommend insulin to help get the patient's sugars down however he is adamant that he does not want to take insulin. He reports that he does not believe in the healthcare system after COVID and states that the healthcare system is just after money. I tried to inform him of the one-time use of insulin only to help get his sugars down however he continued to refuse this medication. I did recommend that the patient increase his metformin if he is not can to take Mounjaro. I did offer to call a different prescription into the pharmacy. Patient states he prefer to wait and talk to his primary care doctor about medication changes which I feel is appropriate. Patient be discharged home. Instructed call his primary care office to discuss his diabetic medications and return for any new or worsening symptoms Undiagnosed new problem with uncertain prognosis? @ -No Drug Therapy requiring intensive monitoring for toxicity (Heparin, Nitro, Insulin, Cardizem)? @ -No Were any procedures done? @ -No Diagnosis/symptom? @ -Acute hyperglycemia, history of diabetes mellitus Acute, or Chronic, or Acute on Chronic? @ -Acute Uncomplicated (without systemic symptoms) or Complicated (systemic symptoms)? @ -Complicated Side effects of treatment? @ -No Exacerbation, Progression, or Severe Exacerbation? @ -No Poses a threat to life or bodily function? How? (Chest pain, [place], [place], pneumonia, PE, COPD, DKA, ARF, appy, cholecystitis, CVA, Diverticulitis, Homicidal, Suicidal, threat to staff... and all critical care pts) @ -No - Lab Data Result diagrams: 11/20/24 08:45 11/20/24 08:45 Lab Results 04/27/25 04/27/25 04/27/25 Range/Units 07:40 08:45 08:45 WBC 7.23 (4.50-10.00) 10*3/uL RBC 5.35 (4.40-5.60) 10*6/uL Hgb 15.1 (13.0-17.0) g/dL Hct 44.6 (39.6-50.0) % MCV 83.4 (80.0-97.0) fL MCH 28.2 (27.0-32.0) pg MCHC 33.9 (32.0-37.0) g/dL Plt Count 204 (140-440) 10*3/uL MPV 10.4 (9.5-12.2) fL Immature Gran % (Auto) 0.3 % Neutrophils % 66.2 % Lymphocytes % 24.1 % Monocytes % 5.8 % Eosinophils % 3.2 % Basophils % 0.4 % Immature Gran # 0.02 (0.00-0.04) 10*3/uL Neutrophils # 4.79 (1.80-7.70) 10*3/uL Lymphocytes # 1.74 (0.90-5.00) 10*3/uL Monocytes # 0.42 (0.20-1.00) 10*3/uL Eosinophils # 0.23 (0.04-0.35) 10*3/uL Basophils # 0.03 (0.00-0.10) 10*3/uL Sodium 133 L (137-145) mmol/L Potassium 4.7 (3.5-5.1) mmol/L Chloride 106 (98-107) mmol/L Carbon Dioxide 23 (22-30) mmol/L Anion Gap 4 mmol/L BUN 16 (9-20) mg/dL Creatinine 0.50 L (0.66-1.25) mg/dL Est GFR (CKD-EPI)AfAm >90 (>60 ml/min/1.73 sqM) Est GFR (CKD-EPI)NonAf >90 (>60 ml/min/1.73 sqM) Glucose 223 H (74-99) mg/dL POC Glucose (mg/dL) 214 H (70-110) mg/dL POC Glu Go Go Dancer ID Hortensia Domi Calcium 8.6 (8.4-10.2) mg/dL Total Bilirubin 0.4 (0.2-1.3) mg/dL AST 18 (17-59) U/L ALT 26 (4-49) U/L Alkaline Phosphatase 136 H (38-126) U/L Total Protein 6.3 (6.3-8.2) g/dL Albumin 4.1 (3.5-5.0) g/dL Urine Color Urine Appearance (Clear) Urine pH (5.0-8.0) Ur Specific [place] (1.001-1.035) Urine Protein (Negative) Urine Glucose (UA) (Negative) Urine Ketones (Negative) Urine Blood (Negative) Urine Nitrite (Negative) Urine Bilirubin (Negative) Urine Urobilinogen (<2.0) mg/dL Ur Leukocyte Esterase (Negative) Acetone, Qual Negative (Negative) 11/20/24 11/20/24 Range/Units 08:55 09:43 WBC (4.50-10.00) 10*3/uL RBC (4.40-5.60) 10*6/uL Hgb (13.0-17.0) g/dL Hct (39.6-50.0) % MCV (80.0-97.0) fL MCH (27.0-32.0) pg MCHC (32.0-37.0) g/dL Plt Count (140-440) 10*3/uL MPV (9.5-12.2) fL Immature Gran % (Auto) % Neutrophils % % Lymphocytes % % Monocytes % % Eosinophils % % Basophils % % Immature Gran # (0.00-0.04) 10*3/uL Neutrophils # (1.80-7.70) 10*3/uL Lymphocytes # (0.90-5.00) 10*3/uL Monocytes # (0.20-1.00) 10*3/uL Eosinophils # (0.04-0.35) 10*3/uL Basophils # (0.00-0.10) 10*3/uL Sodium (137-145) mmol/L Potassium (3.5-5.1) mmol/L Chloride (98-107) mmol/L Carbon Dioxide (22-30) mmol/L Anion Gap mmol/L BUN (9-20) mg/dL Creatinine (0.66-1.25) mg/dL Est GFR (CKD-EPI)AfAm (>60 ml/min/1.73 sqM) Est GFR (CKD-EPI)NonAf (>60 ml/min/1.73 sqM) Glucose (74-99) mg/dL POC Glucose (mg/dL) 193 H (70-110) mg/dL POC Glu Go Go Dancer ID Mike Montes Calcium (8.4-10.2) mg/dL Total Bilirubin (0.2-1.3) mg/dL AST (17-59) U/L ALT (4-49) U/L Alkaline Phosphatase (38-126) U/L Total Protein (6.3-8.2) g/dL Albumin (3.5-5.0) g/dL Urine Color Yellow Urine Appearance Clear (Clear) Urine pH 5.5 (5.0-8.0) Ur Specific [place] 1.021 (1.001-1.035) Urine Protein Negative (Negative) Urine Glucose (UA) 3+ H (Negative) Urine Ketones Negative (Negative) Urine Blood Negative (Negative) Urine Nitrite Negative (Negative) Urine Bilirubin Negative (Negative) Urine Urobilinogen <2.0 (<2.0) mg/dL Ur Leukocyte Esterase Negative (Negative) Acetone, Qual (Negative) Disposition Clinical Impression: Hyperglycemia Disposition: HOME SELF-CARE Condition: Stable Instructions (If sedation given, give patient instructions): Diabetic Hyperglycemia (ED) Additional Instructions: I recommend taking 1000 mg of metformin twice a day to help control your sugars. Please watch your diet. Focus on weight loss. Talk to your doctor about this medication change and return for any new or worsening symptoms Is patient prescribed a controlled substance at d/c from ED?: No Referrals: Lambert De La Garza MD [Primary Care Provider] - 1-2 days Time of Disposition: 10:17
== END 2024-11-20 10:41 | disposition home or self-care (01) ==
LOC: EC 07:31
DX: E11.65 Type 2 diabetes mellitus with hyperglycemia (principal); F17.200 Nicotine dependence, unspecified, uncomplicated; Z79.84 Long term (current) use of oral hypoglycemic drugs; Z88.0 Allergy status to penicillin
CPT/HCPCS: 36415; 80053; 81003; 82009; 85025; 96360; 96361; 99285